=== PATIENT | female | born 1955 | race Caucasian/White ===

== ENCOUNTER 2021-02-14 10:01 | Outpatient (CLI) | payer MEDICARE ==
[2021-02-14 17:46] LABS: SARS-CoV-2 PCR by NAA Not Detected (NotDetected)
== END 2021-02-14 10:02 | disposition home or self-care (01) ==
LOC: CSHLAB 10:01
PROVIDERS: ATTEND Internal Medicine Critical Care Medicine
DX: Z20.822 Contact with and (suspected) exposure to COVID-19 (principal)
CPT/HCPCS: U0003; U0005

== ENCOUNTER 2021-02-17 08:01 | Outpatient (CLI) | payer MEDICARE | END 2021-02-17 08:02 | disposition home or self-care (01) | LOC: CSHCP 08:01 | PROVIDERS: ATTEND Internal Medicine Critical Care Medicine | DX: R05.9 Cough, unspecified (principal) | CPT/HCPCS: 94010; 94726; 94729; 94760 ==

== ENCOUNTER 2024-12-31 13:20 | Outpatient (CLI) | payer MEDICARE | END 2024-12-31 13:21 | disposition home or self-care (01) | LOC: CSHMAMMO 13:20 | PROVIDERS: ATTEND Nurse Practitioner Family | DX: Z12.31 Encounter for screening mammogram for malignant neoplasm of breast (principal); Z80.3 Family history of malignant neoplasm of breast | CPT/HCPCS: 77063; 77067 ==